=== PATIENT | male | born 1950 | race Caucasian/White ===

== ENCOUNTER 2016-07-29 14:07 | Day surgery (SDC) | payer OTHER ==
[~2016-07-29 14:07] MED LIST: CLINDAMYCIN 600 MG PREMIX 50 ML IV ONE; CLINDAMYCIN 600 MG PREMIX 50 ML IV SCH; IV START KIT ONE; LACTATED RINGERS 1,000 ML ONE
[2016-07-29] MEDS ORDERED: PROPOFOL 20 ML IV ONE (16:25)
[2016-07-29] MEDS ORDERED: LIDOCAINE 2% (PRES FREE) 5 ML VIAL ONE (16:26)
[2016-07-29] MEDS ORDERED: FENTANYL 5 ML ONE (16:27)
[2016-07-29] MEDS ORDERED: MIDAZOLAM HCL 1 MG/ML 2ML VIAL ONE (16:27)
[2016-07-29] MEDS ORDERED: CEFAZOLIN SODIUM 1,000 MG VIAL ONE (16:45)
[2016-07-29] MEDS ORDERED: BUPIVACAINE 0.5% (PRES FREE) 30 ML VIAL ONE (16:46)
[2016-07-29] MEDS ORDERED: SODIUM CHLORIDE 0.9% FLUSH 10 ML ONE (16:46)
[2016-07-29] MEDS ORDERED: MEPERIDINE 25 MG/ML SYRINGE IV PRN (17:36)
[2016-07-29] MEDS ORDERED: HYDROMORPHONE HCL 1 MG/ML SYRINGE IV PRN (17:36)
[2016-07-29] MEDS ORDERED: PROMETHAZINE HCL 25 MG/ML VIAL IM PRN (17:36)
[2016-07-29] MEDS ORDERED: ATROPINE SULFATE 0.4 MG/1 ML VIAL IV PRN (17:36)
[2016-07-29] MEDS ORDERED: ONDANSETRON 4 MG/2ML 2 ML VIAL IV PRN ×2 (17:36→19:39)
[2016-07-29] MEDS ORDERED: NALOXONE HCL 0.4 MG/ML VIAL IV PRN (17:36)
[2016-07-29] MEDS ORDERED: HYDRALAZINE HCL 20 MG/1 ML VIAL IV PRN (17:36)
[2016-07-29] MEDS ORDERED: FENTANYL 100 MCG/2 ML VIAL IV PRN (17:36)
[2016-07-29] MEDS ORDERED: LABETALOL HCL 5 MG/ML 20ML VIAL IV PRN (17:36)
[2016-07-29] MEDS ORDERED: LACTATED RINGERS 1,000 ML IV SCH (17:45)
[2016-07-29] MEDS ORDERED: KETOROLAC TROMETHAMINE 30 MG/ML 1 ML VIAL ONE ×2 (18:53)
[2016-07-29] MEDS ORDERED: ONDANSETRON 4 MG/2ML 2 ML VIAL ONE (18:53)
[2016-07-29] MEDS ORDERED: KETOROLAC TROMETHAMINE 30 MG/ML 1 ML VIAL IV PRN (19:39)
[2016-07-29] MEDS ORDERED: OXYCODONE/ACETAMINOPHEN 5/325 MG TABLET PO PRN (19:39)
[2016-07-29] MEDS ORDERED: MORPHINE SULFATE 2 MG/ML SYRINGE IV PRN (19:39)
[2016-07-29] MEDS ORDERED: MORPHINE SULFATE 4 MG/ML SYRINGE IV PRN (21:02)
[2016-07-29] MEDS ORDERED: MORPHINE SULFATE 10 MG/ML SYRINGE IV PRN (21:03)
[2016-07-29 22:49] VITALS: BP 116/73
--- NOTE | 2016-08-08 08:44 | OP ---
Deidra Tatum [id number] DATE: 07/29/2016 PREOPERATIVE DIAGNOSIS: Bilateral inguinal hernia. POSTOPERATIVE DIAGNOSIS: Bilateral inguinal hernia. PROCEDURE: Bilateral inguinal hernia repair with mesh plug x2 and patch to each side. SURGEON: Vasyl Khan M.D. FIELD TRAINER: [place]. ANESTHESIA: Kobzeff, General. INDICATION: This is a 66-year-old male who presents for elective bilateral inguinal hernia repair. DESCRIPTION: With informed consent he was taken to the operating room where he was laid supine on the operating room table. General anesthesia was administered. The lower abdomen and groin were prepped and draped in the usual fashion. Mirror image incision were drawn on the skin. We did the left side first. Local anesthetic was administered in the skin and subcutaneous tissues. Incision was made. Electrocautery was used to divide the subcutaneous fat and juan's fascia. We dissected down to the external oblique. This was opened with a knife and Metzenbaum scissors in a fibrous splitting technique. The ilioinguinal nerve was identified and retracted cephalad. Cord structures were encircled to the level of the pubic tubercle with a Cody drain. There was a fairly large indirect sac. Cord structures were barely adherent to it. I opened the sac and found some pericolic fat and a part of the sigmoid colon attached up in the sac. I was able to dissect some of this free. I dissected the sac down to the floor of the canal. It was closed with a purse string of 2-0 Vicryl. Most of the sac was excised. It was noted that the floor of the canal was extremely weakened. I incised the floor of the canal. I entered into a preperitoneal plane. An extra large mesh plug was placed into the floor, it was secured circumferentially with 2-0 Vicryl's. There was still a defect out laterally and a medium mesh plug was placed in a pantaloon type fashion with inferior epigastric vessels in the crotch. The two plugs were secured together with Vicryl. It was also secured on the edges with 2-0 Vicryl. A flat piece of mesh was placed across the floor of the canal. The medial aspect overlapped the pubic tubercle. A slit was cut laterally. This was placed around the cord structures and then it was brought together with some 2-0 Vicryl and placed up beneath the external oblique. The wound was irrigated. We appeared to have adequate hemostasis. The external oblique was reapproximated with 2-0 Vicryl. Additional local anesthetic was administered below the external oblique and in the subcutaneous tissues. The juan's fascia reapproximated with 3-0 Vicryl. The skin was closed with a running subcuticular 4-0 Monocryl. Local anesthetic was administered on the right side. It was incised and opened in a similar fashion. Very similar findings were identified with an indirect sac and very weakened floor. It also was repaired in a similar way with an extra large mesh plug in the floor of canal and a medium plug lateral to this. They were secured together with Vicryl in a pantaloon type fashion. A flat piece of mesh was also placed across the floor, secured laterally with Vicryl, and placed beneath the external oblique. The wound was closed in a similar fashion. Mastisol and Steri-Strips were placed both sides. Sterile dressings were applied. He tolerated the procedure and was taken to the recovery room in stable condition. Note was made that needle, instrument, and lap counts were reported as correct at the time of closure. JOB: [id number] CC: Dr. Glen Flores
== END 2016-07-29 23:00 | disposition home or self-care (01) ==
LOC: SDC 14:07 → MS 19:40 → SDC 23:00
PROVIDERS: ATTEND Surgery
PROC: 0YUA0JZ Supplement Bilateral Inguinal Region with Synthetic Substitute, Open Approach (ICD-10-PCS; principal; 2016-07-29)
DX: K40.20 Bilateral inguinal hernia, without obstruction or gangrene, not specified as recurrent (principal); F41.9 Anxiety disorder, unspecified; K21.9 Gastro-esophageal reflux disease without esophagitis; E78.5 Hyperlipidemia, unspecified; F42.9 Obsessive-compulsive disorder, unspecified; Z88.0 Allergy status to penicillin
CPT/HCPCS: 49505; C1781 ×4; J0690; J3010; A9270; J1885; J2250; J2405; J7120